=== PATIENT | female | born 1995 | race Caucasian/White ===

== ENCOUNTER 2021-12-02 20:17 | Emergency (ER) | payer OTHER ==
[2021-12-02 20:52] LABS: BASOPHIL 0.2 % (0-2); EOSINOPHIL 0 % (0-5); HCT 42.1 % (37.0-47.0); HGB 14.3 g/dl (12.5-16.0); LYMPHOCYTE 26.9 % (15-48); MCH 30.3 pg (25.0-31.0); MCV 89.2 fL (78.0-100.0); MONOCYTE 4.9 % (0-12); MPV 9.4 fL (6.0-9.5); NEUTROPHIL 67.8 % (41-80); NRBC 0; PLT 236 K/uL (150-400); RBC 4.72 M/uL (4.20-5.40); RDW 13.1 % (11.5-14.0); WBC 8.9 K/uL (4.0-10.5)
[2021-12-02 21:21] LABS: ALBUMIN 3.7 g/dL (3.4-5.0); ALKALINE PHOSHATASE 65 U/L (46-116); ALT 35 U/L (14-59); AST 18 U/L (15-37); BILIRUBIN - TOTAL 0.7 mg/dL (0.2-1.0); BUN 11 mg/dL (7-18); BUN/CREAT RATIO (CALC) 12.4 RATIO; CHLORIDE 104 mmol/L (98-107); CO2 (BICARBONATE) 23 mmol/L (21-32); CREATININE 0.89 mg/dL (0.51-0.95); GLOBULIN (CALCULATION) 4.1 g/dL; GLUCOSE 88 mg/dL (74-106); POTASSIUM 3.7 mmol/L (3.5-5.1); TOTAL PROTEIN 7.8 g/dL (6.4-8.2)
[2021-12-02 21:22] LABS: ACETAMINOPHEN (TYLENOL) < 2.0 ug/mL (10.0-30.0)
[2021-12-02 21:52] LABS: ECSTASY (MDMA) NEGATIVE (NEGATIVE); MARIJUANA (THC) POSITIVE (NEGATIVE); METHADONE NEGATIVE (NEGATIVE); OPIATES NEGATIVE (NEGATIVE)
[2021-12-02 21:53] LABS: AMPHETAMINES NEGATIVE (NEGATIVE); BARBITURATES NEGATIVE (NEGATIVE); OXYCODONE NEGATIVE (NEGATIVE)
== END 2021-12-03 00:05 ==
LOC: FER 20:17
PROVIDERS: Emergency Medicine
DX: F12.929 Cannabis use, unspecified with intoxication, unspecified (principal)
CPT/HCPCS: 36415; 70450; 80053; 80305; 84703; 85025; 93005; G0480; J3411; J3475; J7030